=== PATIENT | female | born 1950 | race Native Hawaiian/Other Pacific Islander ===

== ENCOUNTER 2022-01-15 14:22 | Emergency (ER) | payer OTHER ==
[~2022-01-15] VITALS: Ht 157.5 cm; Wt 65.8 kg
[2022-01-15 14:22] VITALS: BP 134/74; TEMP 97.3
[2022-01-15 16:35] LABS: PLATELET COUNT 83 K/uL (152-353)
[2022-01-15 16:47] LABS: POTASSIUM 4.1 mmol/L (3.6-5.2)
== END 2022-01-15 17:08 | disposition home or self-care (01) ==
LOC: ED 14:44
PROVIDERS: Family Medicine
DX: R07.89 Other chest pain (principal); D84.9 Immunodeficiency, unspecified; Z91.199 Patient's noncompliance with other medical treatment and regimen due to unspecified reason; Z53.29 Procedure and treatment not carried out because of patient's decision for other reasons
CPT/HCPCS: 36415; 80053; 80307; 81002; 82150; 83690; 84484; 85027; 87040; 93005; 99283